=== PATIENT | female | born 1985 | race American Indian/Alaskan Native ===

== ENCOUNTER 2020-08-08 11:35 | Emergency (ER) | payer BC ==
[2020-08-08 12:00] VITALS: BP 128/72
--- NOTE | 2020-08-08 12:11 | Emergency Department Report ---
- General Chief complaint: Skin/Abscess/Foreign Body Stated complaint: EAR RING IN EAR Source: patient Mode of arrival: Ambulatory Limitations: No Limitations - History of Present Illness Initial comments: This is a 35-year-old female nontoxic, well nourished in appearance, no acute signs of distress presents to the ED with c/o of right earring stuck to right earlobe. Patient denies any trauma. Patient denies any chest pain, shortness of breath, fever, chills, nausea, vomiting, headache or stiff neck. Patient denies any allergies or significant past medical history. -: This morning Severity scale (0 -10): 3 Quality: aching Consistency: constant Improves with: none Worsens with: none Associated symptoms: denies other symptoms - Related Data Previous Rx's Medication Instructions Recorded Last Taken Type Pseudoephed/Cod/Guaifen 5 ml PO Q6H PRN #80 bottle 05/04/15 Unknown Rx [Robitussin DAC 10-100-30Mg/5Ml] predniSONE [Deltasone] 20 mg PO QDAY #5 tab 05/04/15 Unknown Rx Neomycin/Bacitracin/Polymyxinb 30 gm TP BID 7 Days #1 oint...g. 08/08/20 Unknown Rx [Triple Antibiotic Ointment] Allergies Allergy/AdvReac Type Severity Reaction Status Date / Time No Known Allergies Allergy Unverified 05/04/15 00:28 Abscess Boil HPI - HPI Chief Complaint: Skin/Abscess/Foreign Body Stated Complaint: EAR RING IN EAR Home Medications: Previous Rx's Medication Instructions Recorded Last Taken Type Pseudoephed/Cod/Guaifen 5 ml PO Q6H PRN #80 bottle 05/04/15 Unknown Rx [Robitussin DAC 10-100-30Mg/5Ml] predniSONE [Deltasone] 20 mg PO QDAY #5 tab 05/04/15 Unknown Rx Neomycin/Bacitracin/Polymyxinb 30 gm TP BID 7 Days #1 oint...g. 08/08/20 Unknown Rx [Triple Antibiotic Ointment] Allergies/Adverse Reactions: Allergies Allergy/AdvReac Type Severity Reaction Status Date / Time No Known Allergies Allergy Unverified 05/04/15 00:28 ED Review of Systems ROS: Stated complaint: EAR RING IN EAR Other details as noted in HPI Constitutional: denies: chills, fever Eyes: denies: eye pain, eye discharge, vision change ENT: denies: ear pain, throat pain Respiratory: denies: cough, shortness of breath, wheezing Cardiovascular: denies: chest pain, palpitations Endocrine: no symptoms reported Gastrointestinal: denies: abdominal pain, nausea, diarrhea Genitourinary: denies: urgency, dysuria, discharge Musculoskeletal: denies: back pain, joint swelling, arthralgia Skin: denies: rash, lesions Neurological: denies: headache, weakness, paresthesias Psychiatric: denies: anxiety, depression Hematological/Lymphatic: denies: easy bleeding, easy bruising ED Past Medical Hx - Past Medical History Previous Medical History?: Yes Hx Asthma: Yes - Surgical History Past Surgical History?: Yes Additional Surgical History: L knee - Social History Smoking Status: Never Smoker Substance Use Type: None - Medications Home Medications: Home Medications Medication Instructions Recorded Confirmed Last Taken Type Pseudoephed/Cod/Guaifen 5 ml PO Q6H PRN #80 bottle 05/04/15 Unknown Rx [Robitussin DAC 10-100-30Mg/5Ml] predniSONE [Deltasone] 20 mg PO QDAY #5 tab 05/04/15 Unknown Rx Neomycin/Bacitracin/Polymyxinb 30 gm TP BID 7 Days #1 oint...g. 08/08/20 Unknown Rx [Triple Antibiotic Ointment] ED Physical Exam - General Limitations: No Limitations General appearance: alert, in no apparent distress - Head Head exam: Present: atraumatic, normocephalic - Eye Eye exam: Present: normal appearance - ENT ENT exam: Present: normal exam, TM's normal bilaterally, other (Right hearing screw inside right earlobe.) - Neck Neck exam: Present: normal inspection, full ROM - Respiratory Respiratory exam: Absent: respiratory distress - Cardiovascular Cardiovascular Exam: Present: regular rate - Extremities Exam Extremities exam: Present: full ROM - Back Exam Back exam: Present: full ROM - Neurological Exam Neurological exam: Present: alert, oriented X3, normal gait - Psychiatric Psychiatric exam: Present: normal affect, normal mood - Skin Skin exam: Present: warm, dry, intact, normal color. Absent: rash ED Course Vital Signs 08/08/20 11:59 Temperature 98 F Pulse Rate 77 Respiratory 16 Rate Blood Pressure 128/72 [Right] O2 Sat by Pulse 100 Oximetry - Reevaluation(s) Reevaluation #1: 08/08/20 12:07 Patient is speaking in full sentences with no signs of distress noted. - Procedure Description Procedures done: Under sterile field, I used Betadine to clean the area. I then used 40 mL of normal saline to flush the area. I then used 2% lidocaine lidocaine plain and injected 1 cc to the right earlobe. I then used a hemostat and removed the earrings. I then applied a sterile 4 x 4 with tape. Minimal bleeding noted but is under control. Patient tolerated procedure well with no signs of distress. ED Medical Decision Making - Medical Decision Making Patient is stable and was examined by me. Earring has been successfully been removed. Patient was educated on proper wound care. Patient be treated with triple antibiotic ointment. Patient was instructed to follow-up with a primary care doctor in 3-5 days or if symptoms worsen and continue return to emergency room as soon as possible. At time of discharge, the patient does not seem toxic or ill in appearance. No acute signs of distress noted. Patient agrees to discharge treatment plan of care. No further questions noted by the patient. Critical care attestation.: If time is entered above; I have spent that time in minutes in the direct care of this critically ill patient, excluding procedure time. ED Disposition Clinical Impression: Acute foreign body of right earlobe Qualifiers: Encounter type: initial encounter Qualified Code(s): T16.1XXA - Foreign body in right ear, initial encounter Disposition: TO HOME OR SELFCARE Is pt being admited?: No Does the pt Need Aspirin: No Condition: Stable Instructions: Wound Care, Adult Additional Instructions: Follow-up with a primary care doctor in 3-5 days or if symptoms worsen and continue return to emergency room as soon as possible. Prescriptions: Neomycin/Bacitracin/Polymyxinb [Triple Antibiotic Ointment] 30 gm TP BID 7 Days #1 oint...g. Referrals: CARMENCITA GRAHAM MD [Referring] - 3-5 Days FÉLIX FLORES MD [Staff Physician] - 3-5 Days Time of Disposition: 12:11
[2020-08-08] MEDS ORDERED: NEOMY 3.5 MG/BACIT 400 UNITS/POLY B 5000 UNITS/GM OINT PACKET TP ONE (12:13)
== END 2020-08-08 12:20 | disposition home or self-care (01) ==
LOC: ED 11:35
DX: T16.1XXA Foreign body in right ear, initial encounter (principal); J45.909 Unspecified asthma, uncomplicated; Z79.899 Other long term (current) drug therapy; W45.8XXA Other foreign body or object entering through skin, initial encounter; Y93.89 Activity, other specified; Y92.488 Other paved roadways as the place of occurrence of the external cause; Y99.8 Other external cause status
CPT/HCPCS: 99282; A6250; 99281

== ENCOUNTER 2021-01-07 10:27 | Emergency (ER) | payer BC, OTHER ==
[2021-01-07] MEDS ORDERED: ACETAMINOPHEN 500 MG TAB PO ONE (10:59)
[2021-01-07] MEDS ORDERED: IBUPROFEN 800 MG TAB PO ONE (10:59)
--- NOTE | 2021-01-07 11:04 | Emergency Department Report ---
ED General Adult HPI - General Chief complaint: Dyspnea/Respdistress Stated complaint: CHEST PAIN, SOB, RUNNY NOSE, SORE THROAT Time Seen by Provider: 01/07/21 10:49 Source: patient Mode of arrival: Ambulatory Limitations: No Limitations - History of Present Illness Initial comments: 35-year-old female patient presents to the emergency department with complaints of productive cough, chest tightness, sore throat, sneezing, and nasal congestion starting yesterday. Took an [id number]-lznauxi pain reliever with limited relief. No known sick contacts. No current state or antibiotic use. No recent travel. Patient has not received her COVID-19 vaccination series. Denies neck stiffness, rash, wheezing, abdominal pain, vomiting, diarrhea. Denies all other complaints at this time. Severity scale (0 -10): 9 - Related Data Previous Rx's Medication Instructions Recorded Last Taken Type Pseudoephed/Cod/Guaifen 5 ml PO Q6H PRN #80 bottle 05/04/15 Unknown Rx [Robitussin DAC 10-100-30Mg/5Ml] predniSONE [Deltasone] 20 mg PO QDAY #5 tab 05/04/15 Unknown Rx Neomycin/Bacitracin/Polymyxinb 30 gm TP BID 7 Days #1 oint...g. 08/08/20 Unknown Rx [Triple Antibiotic Ointment] guaiFENesin/DEXTROMETHORPHAN 1 each PO BID #10 capsule 01/07/21 Unknown Rx [Robitussin Qqfot-Yfkpd-Payv Dm] Allergies Allergy/AdvReac Type Severity Reaction Status Date / Time No Known Allergies Allergy Unverified 05/04/15 00:28 ED Review of Systems ROS: Stated complaint: CHEST PAIN, SOB, RUNNY NOSE, SORE THROAT Other details as noted in HPI Other: GENERAL: Negative for fever, chills, weight change, anorexia, fatigue. ENT: Positive for sore throat, sneezing, and congestion. CARDIOVASCULAR: Negative for palpitations and lower extremity swelling. PULMONARY: Positive for cough and chest tightness. GASTROINTESTINAL: Negative for abdominal pain, nausea, vomiting, diarrhea, constipation. MUSCULOSKELETAL: Negative for joint pain, joint swelling, myalgias, back pain, neck pain. NEUROLOGICAL: Negative for headache, seizure, syncope, paresthesias, weakness. INTEGUMENTARY: Negative for erythema, rash, diaphoresis, laceration, ecchymosis. HEMATOLOGICAL: Negative for hemoptysis, hematemesis, hematochezia, hematuria. PSYCHIATRIC: Negative for hallucinations, suicidal ideation, homicidal ideation, anxiety, depression. ED Past Medical Hx - Past Medical History Previous Medical History?: Yes Hx Asthma: Yes - Surgical History Past Surgical History?: Yes Additional Surgical History: L knee - Social History Smoking Status: Never Smoker Substance Use Type: None - Medications Home Medications: Home Medications Medication Instructions Recorded Confirmed Last Taken Type Pseudoephed/Cod/Guaifen 5 ml PO Q6H PRN #80 bottle 05/04/15 Unknown Rx [Robitussin DAC 10-100-30Mg/5Ml] predniSONE [Deltasone] 20 mg PO QDAY #5 tab 05/04/15 Unknown Rx Neomycin/Bacitracin/Polymyxinb 30 gm TP BID 7 Days #1 oint...g. 08/08/20 Unknown Rx [Triple Antibiotic Ointment] guaiFENesin/DEXTROMETHORPHAN 1 each PO BID #10 capsule 01/07/21 Unknown Rx [Robitussin Qioxq-Ewctv-Uwbs Dm] ED Physical Exam - General Limitations: No Limitations - Other Other exam information: General: Awake and alert. No acute distress. Head: Atraumatic, normocephalic. Eyes: EOMI. Pupils are equal and round. Normal sclera and conjunctiva. ENT: Oral mucosa is moist. Normal pharyngeal exam. Nasal congestion. Neck: Supple. No lymphadenopathy. Pulmonary: Intermittent cough noted. No respiratory distress. Clear to auscultation bilaterally. Cardiac: Tachycardic. Pulses are palpable and equal bilaterally. No lower extremity cyanosis or edema. Skin: Warm and dry. No rashes. Abdomen: Soft, non-tender, non-protuberant. No guarding, rigidity, or rebound. Bowel sounds are normal. No organomegaly or masses noted. Back: Normal alignment. No CVA tenderness. Extremities: Symmetrical. Full range of motion intact. Neurological: Alert and oriented, appropriately interactive, no focal deficits. Psych: Cooperative. Appropriate mood and affect. Speech is evenly metered. Thoughts are logically construed. ED Course Vital Signs 01/07/21 01/07/21 10:32 12:11 Temperature 100.6 F H 98.5 F Pulse Rate 128 H 90 Respiratory 20 17 Rate Blood Pressure 121/82 107/73 [Right] O2 Sat by Pulse 98 99 Oximetry ED Medical Decision Making - Medical Decision Making Differential diagnosis including but not limited to: pneumonia, influenza, pertussis, viral upper respiratory infection, sinusitis On reevaluation, patient is stable. Tachycardia and fever both resolved after administration of antipyretics. Patient exhibits no respiratory distress and appears well-hydrated. Chest x-ray is negative. History and exam findings suggestive of viral upper respiratory infection; no clinical indication for further diagnostic work-up on an emergent basis at this time. COVID-19 testing is currently unavailable at this facility however patient has been made aware of the possibility. Patient will be discharged home with appropriate symptomatic treatment and referred to primary care provider for close outpatient follow-up. Patient expressed understanding and is agreeable to plan of care. Disease transmission precautions discussed. Strict return precautions provided. Repeat exam is unremarkable and benign. History, exam, diagnostic testing, and current condition do not suggest worrisome pathology to warrant further testing, continued ED treatment, admission, or surgical evaluation at this point. Given the low probability of a significant medical illness, it would be more likely to result in harm than benefit to perform further testing at this stage. Discussed findings, presumptive diagnosis, need for follow-up and specific signs/symptoms that should prompt immediate return to the emergency department. Instructions were explained in detail to the patient in addition to giving written discharge information. Patient expressed understanding and was given the opportunity to ask questions, all of which were satisfactorily answered prior to discharge home. Critical care attestation.: If time is entered above; I have spent that time in minutes in the direct care of this critically ill patient, excluding procedure time. ED Disposition Clinical Impression: Viral upper respiratory tract infection with cough Disposition: DC-01 TO HOME OR SELFCARE Is pt being admited?: No Does the pt Need Aspirin: No Condition: Stable Instructions: Viral Respiratory Infection, Hinu-Oh-Wuvu Additional Instructions: Take Tylenol every 4 hours and Motrin every 8 hours as needed for pain/fever. Use salt water gargles and Cepacol lozenges as needed for sore throat. Honey is an excellent natural cough suppressant. Exposure to warm humidified air may help relieve congestion. Take Robitussin as directed. Rest. Drink plenty fluids. Wash hands frequently to prevent disease transmission. Do not share food or drinks with others. Follow-up with primary care provider this week. Call today to schedule an appointment. See referral information below. Return to the emergency department immediately for new or worsening symptoms. Prescriptions: guaiFENesin/DEXTROMETHORPHAN [Robitussin Yrlon-Deded-Faqj Dm] 1 each PO BID #10 capsule Referrals: PRIMARY MD SANTOS [Primary Care Provider] - 3-5 Days FÉLIX FLORES MD [Staff Physician] - 3-5 Days [facility] [Provider Group] - 3-5 Days Forms: Work/School Release Form(ED) Time of Disposition: 12:01
--- NOTE | 2021-01-07 11:37 | XRay Report ---
CHEST 2 VIEWS INDICATION / CLINICAL INFORMATION: fever/cough. COMPARISON: None available. FINDINGS: SUPPORT DEVICES: None. HEART / MEDIASTINUM: No significant abnormality. LUNGS / PLEURA: No significant pulmonary or pleural abnormality. No pneumothorax. No confluent infilt rate or pleural effusion. ADDITIONAL FINDINGS: No significant additional findings. IMPRESSION: 1. No acute findings. Signer Name: Alf Her MD Signed: 01/07/2021 11:32 AM Workstation Name: [id number]
[2021-01-07 12:12] VITALS: BP 107/73
== END 2021-01-07 12:14 | disposition home or self-care (01) ==
LOC: ED 10:27
DX: J06.9 Acute upper respiratory infection, unspecified (principal); B97.89 Other viral agents as the cause of diseases classified elsewhere; J45.909 Unspecified asthma, uncomplicated; Z98.890 Other specified postprocedural states
CPT/HCPCS: 71046; 99283